=== PATIENT | male | born 1985 | race Asian ===

== ENCOUNTER 2017-03-20 12:46 | Emergency (ER) | payer MEDICAID ==
[2017-03-20] MEDS: LORAZEPAM 2 MG INJ IV (13:36)
[2017-03-20] MEDS: SOD CHLORIDE 0.9% 1,000 ML IV (13:36)
[2017-03-20] MEDS: ONDANSETRON 4 MG INJ IV (13:58)
[2017-03-20] MEDS: morphine 4 MG/ML VIAL IV (13:58)
[2017-03-20 14:04] LABS: ADD MAN DIFF? NO
[2017-03-20 14:06] LABS: WHITE BLOOD COUNT 9.6 10^3/ul (4.8-10.8)
[2017-03-20 14:06] LABS: ABNORMAL IP MESSAGE 1; BASOPHILS % 0.1 % (0.0-2.0); HEMATOCRIT 43.1 % (42.0-52.0); HEMOGLOBIN 14.5 g/dl (14.0-18.0); LYMPHOCYTES # 0.6 10^3/ul (0.8-2.9); LYMPHOCYTES % 5.8 % (15.0-51.0); MEAN CORPUSCULAR HEMOGLOBIN 28.8 pg (29.0-33.0); MEAN CORPUSCULAR HGB CONC 33.6 g/dl (32.0-37.0); MEAN CORPUSCULAR VOLUME 85.5 fl (82.0-101.0); MEAN PLATELET VOLUME 10.4 fl (7.4-10.4); MONOCYTE # 0.4 10^3/ul (0.3-0.9); MONOCYTES % 3.9 % (0.0-11.0); NEUTROPHIL # 8.6 10^3/ul (1.6-7.5); NEUTROPHILS % 89.1 % (39.0-77.0); PLATELET COUNT 171 10^3/UL (140-415); POSITIVE DIFF @See below; RED BLOOD COUNT 5.04 10^6/ul (4.70-6.10); RED CELL DISTRIBUTION WIDTH 12.6 % (11.5-14.5)
[2017-03-20 14:33] LABS: ANION GAP 21 (8-16); BLOOD UREA NITROGEN 9 mg/dl (7-20); CALCIUM 8.8 mg/dl (8.4-10.2); CARBON DIOXIDE 24 mmol/L (21-31); CHLORIDE 102 mmol/L (97-110); CREATININE 0.82 mg/dl (0.61-1.24); GLUCOSE 121 mg/dl (70-220); POTASSIUM 4.1 mmol/L (3.5-5.1); SODIUM 143 mmol/L (135-144)
[2017-03-20 14:36] LABS: ETHANOL < 10.0 mg/dl
[2017-03-20] MEDS: HYDROmorphONE 1 MG/ML SYG IV (16:02)
== END 2017-03-20 18:04 | disposition home or self-care (01) ==
LOC: E/R 12:46
DX: S42.292A Other displaced fracture of upper end of left humerus, initial encounter for closed fracture (principal); G40.909 Epilepsy, unspecified, not intractable, without status epilepticus; S22.050A Wedge compression fracture of T5-T6 vertebra, initial encounter for closed fracture; R40.2142 Coma scale, eyes open, spontaneous, at arrival to emergency department; R40.2252 Coma scale, best verbal response, oriented, at arrival to emergency department; R40.2362 Coma scale, best motor response, obeys commands, at arrival to emergency department; R93.0 Abnormal findings on diagnostic imaging of skull and head, not elsewhere classified; W18.39XA Other fall on same level, initial encounter; Y92.9 Unspecified place or not applicable
CPT/HCPCS: 29105; 70450; 71110; 71250; 72072; 73030; 80048; 80306; 82962; 85025; 96374; 96375; 99285-25

== ENCOUNTER 2017-03-20 18:04 | Emergency (ER) | payer SELFPAY, MEDICAID | END 2017-03-21 11:29 | disposition left against medical advice (07) | LOC: E/R 18:04 | DX: Z53.21 Procedure and treatment not carried out due to patient leaving prior to being seen by health care provider (principal) ==